=== PATIENT | female | born 1970 | race Hispanic/Latino ===

== ENCOUNTER 2017-09-02 12:38 | Inpatient (IN) | payer BC ==
[~2017-09-02] VITALS: Ht 157.5 cm; Wt 102.0 kg
[2017-09-02 13:05] VITALS: BP 140/80
[2017-09-02 13:38] LABS: BASOPHILS % (AUTO) 0.6 % (0.0-5.0); EOSINOPHILS % (AUTO) 1.5 % (0.0-8.0); HEMATOCRIT 37.5 % (36-48); LYMPHOCYTES % (AUTO) 29.1 % (21.0-51.0); MEAN CORPUSCULAR HEMOGLOBIN 24.2 pg (27.0-33.0); MEAN CORPUSCULAR HGB CONC 31.6 g/dL (32.0-36.0); MEAN CORPUSCULAR VOLUME 76.7 fL (79-99); MONOCYTES % (AUTO) 8.3 % (3.0-13.0); NEUTROPHILS % (AUTO) 60.5 % (40.0-77.0); PLATELET COUNT (AUTO) 459 K/uL (130-400); RED BLOOD CELL COUNT(AUTO) 4.89 MIL/uL (4.00-5.50); RED CELL DISTRIBUTION WIDTH 19.6 % (11.0-15.5); WHITE BLOOD COUNT (AUTO) 6.8 K/uL (4.8-10.8)
[2017-09-03] VITALS (21 sets, daily range): BP systolic 129–170; BP diastolic 66–92
[2017-09-03] MEDS ORDERED: LACTATED RINGERS 1000ML 1,000 ML IV SCH (06:00)
[2017-09-03] MEDS: CALDOLOR 800MG+NS 250ML 250 ML IV SCH ×2 (06:00→10:00)
[2017-09-03] MEDS ORDERED: CEFAZOLIN 3GM /D5W 100ML 100 ML IV SCH (06:00)
[2017-09-03] MEDS: CEFAZOLIN SODIUM 1 GM VIAL ONE ×2 (09:51→10:50)
[2017-09-03] MEDS ORDERED: FENTANYL CITRATE PF 50 MCG/1 ML 2ML VIAL ONE ×3 (10:43→13:02)
[2017-09-03] MEDS ORDERED: MIDAZOLAM HCL 1 MG/ML 2ML VIAL ONE (10:43)
[2017-09-03] MEDS ORDERED: SUCCINYLCHOLINE 200MG/10ML SYR ONE (10:43)
[2017-09-03] MEDS ORDERED: PROPOFOL 10 MG/ML 20ML VIAL IV ONE (10:43)
[2017-09-03] MEDS ORDERED: NEOSTIGMINE 5MG/5ML SYR IV ONE ×3 (10:43→13:00)
[2017-09-03] MEDS ORDERED: LIDOCAINE PF 2% 5ML ABBOJECT ONE (10:43)
[2017-09-03] MEDS ORDERED: ONDANSETRON HCL 4 MG/2 ML VIAL ONE (10:43)
[2017-09-03] MEDS ORDERED: DEXAMETHASONE SOD PHOSPHATE 10MG/ML 1ML VIAL ONE (10:43)
[2017-09-03] MEDS ORDERED: GLYCOPYRROLATE 0.2 MG/ML 5 ML VIAL ONE (10:43)
[2017-09-03] MEDS ORDERED: MORPHINE SULFATE 10 MG/ML 1ML SYG ONE (11:49)
[2017-09-03] MEDS ORDERED: LIDOCAINE HCL-MPF 1% 5ML AMP IJ ONE (13:00)
[2017-09-03] MEDS ORDERED: MEPERIDINE-PF 50 MG/ML SYG ONE ×2 (13:28→13:44)
[2017-09-03] MEDS ORDERED: ACETAMINOPHEN-CODEINE 300/30MG TAB PO PRN (14:15)
[2017-09-03] MEDS ORDERED: HYDROCODONE/ACETAMINOPHEN 5/325 MG TAB PO PRN ×2 (14:15)
[2017-09-03] MEDS ORDERED: SIMETHICONE 80 MG TAB.CHEW PO PRN (14:15)
[2017-09-03] MEDS: IBUPROFEN 800 MG TAB PO SCH ×2 (14:15→20:15)
[2017-09-03] MEDS ORDERED: BISACODYL 10 MG SUPP.RECT RC PRN (14:15)
[2017-09-03] MEDS ORDERED: DIPH,PERTUSS(ACELL),TET VAC/PF 0.5 ML VIAL IM SCH (14:15)
[2017-09-03] MEDS ORDERED: DOCUSATE SODIUM 100 MG CAP PO PRN (14:15)
[2017-09-03] MEDS ORDERED: IBUPROFEN 800 MG TAB PO PRN (14:15)
[2017-09-03] MEDS: MEPERIDINE-PF 75 MG/ML SYG IM PRN ×2 (15:09→19:14)
[2017-09-03] MEDS: PROMETHAZINE HCL 25 MG/ML 1ML AMPULE IM PRN ×2 (15:09→19:04)
[2017-09-03] MEDS: DEXTROSE 5 %-0.45 % NACL 1,000 ML IV PRN (18:42)
[2017-09-03] MEDS: CALDOLOR 800MG+NS 250ML 250 ML IVPB SCH (22:00)
[2017-09-04] MEDS: IBUPROFEN 800 MG TAB PO SCH ×4 (02:15→21:00)
[2017-09-04 03:28] VITALS: BP 134/77
[2017-09-04] MEDS: DEXTROSE 5 %-0.45 % NACL 1,000 ML IV PRN (04:38)
[2017-09-04] MEDS: CALDOLOR 800MG+NS 250ML 250 ML IVPB SCH (06:02)
[2017-09-04 06:44] LABS: HEMATOCRIT 33.1 % (36-48); MEAN CORPUSCULAR VOLUME 77.5 fL (79-99); PLATELET COUNT (AUTO) 397 K/uL (130-400); RED BLOOD CELL COUNT(AUTO) 4.27 MIL/uL (4.00-5.50); RED CELL DISTRIBUTION WIDTH 19.4 % (11.0-15.5); WHITE BLOOD COUNT (AUTO) 12.9 K/uL (4.8-10.8)
[2017-09-04 07:47] VITALS: BP 141/76
[2017-09-04] MEDS: DOCUSATE SODIUM 100 MG CAP PO PRN ×2 (08:52→20:59)
[2017-09-04] MEDS ORDERED: DOCU240C80 PO (11:00)
[2017-09-04] MEDS ORDERED: MO8B PO (11:01)
[2017-09-04] MEDS ORDERED: TYL3 PO (11:02)
[2017-09-04 11:38] VITALS: BP 142/82
[2017-09-04] MEDS: SIMETHICONE 80 MG TAB.CHEW PO PRN ×2 (13:48→20:59)
[2017-09-04 15:58] VITALS: BP 139/67
[2017-09-04 19:35] VITALS: BP 135/71
[2017-09-04 23:09] VITALS: BP 121/58
[2017-09-05 03:03] VITALS: BP 112/76
[2017-09-05] MEDS: IBUPROFEN 800 MG TAB PO SCH (06:18)
[2017-09-05 07:49] VITALS: BP 136/74
[2017-09-05] MEDS: SIMETHICONE 80 MG TAB.CHEW PO PRN (08:57)
[2017-09-05] MEDS: DOCUSATE SODIUM 100 MG CAP PO PRN (08:57)
== END 2017-09-05 10:55 | disposition home or self-care (01) | DRG 742 ==
LOC: DAHIP 09-03 09:16 → EDSTATUS 09-03 13:00 → WSH 09-03 14:45
PROVIDERS: ADMIT Obstetrics & Gynecology; ATTEND Obstetrics & Gynecology
PROC: 0UN10ZZ Release Left Ovary, Open Approach (ICD-10-PCS; 2017-09-03)
PROC: 0UN90ZZ Release Uterus, Open Approach (ICD-10-PCS; 2017-09-03)
PROC: 0UT90ZZ Resection of Uterus, Open Approach (ICD-10-PCS; principal; 2017-09-03 10:50)
PROC: 0UT50ZZ Resection of Right Fallopian Tube, Open Approach (ICD-10-PCS; 2017-09-03 10:50)
PROC: 0UT00ZZ Resection of Right Ovary, Open Approach (ICD-10-PCS; 2017-09-03 10:50)
DX: N92.1 Excessive and frequent menstruation with irregular cycle (principal); Z68.41 Body mass index [BMI] 40.0-44.9, adult; D25.9 Leiomyoma of uterus, unspecified; F17.200 Nicotine dependence, unspecified, uncomplicated; E66.9 Obesity, unspecified; N83.10 Corpus luteum cyst of ovary, unspecified side; N73.6 Female pelvic peritoneal adhesions (postinfective); D64.9 Anemia, unspecified
CPT/HCPCS: 36415; 84703; 85025; 85027; 86850; 86900; 86901; 88307; 90715; A4218; A4344; J0330; J0690; J1100; J1741; J2001; J2175; J2250; J2270; J2405; J2550; J2704; J2710; J3010; J3490; J7030; J7120

== ENCOUNTER 2017-09-07 21:56 | Observation (INO) | payer BC ==
[~2017-09-07] VITALS: Ht 154.9 cm; Wt 105.2 kg
[~2017-09-07 21:56] MED LIST: DOCU240C80 PO; MO8B PO; TYL3 PO
[2017-09-07] MEDS ORDERED: MEROPENEM 1 GM VIAL ONE (22:36)
[2017-09-07] MEDS ORDERED: SODIUM CHLORIDE 0.9% 1000ML 1,000 ML IV ONE (22:36)
[2017-09-07 22:40] LABS: APPEARANCE,URINE Cloudy (CLEAR); BILIRUBIN,URINE Negative (NEGATIVE); COLOR,URINE Yellow (YELLOW); GLUCOSE, URINE (UA) Negative (NEGATIVE); KETONES,URINE Negative (NEGATIVE); LEUKOCYTE ESTERASE ,URINE Negative (NEGATIVE); NITRATE,URINE Negative (NEGATIVE); OCCULT BLOOD,URINE Trace (NEGATIVE); PROTEIN,URINE Negative (NEGATIVE)
[2017-09-07 22:51] LABS: MEAN CORPUSCULAR HEMOGLOBIN 23.9 pg (27.0-33.0)
[2017-09-07 23:01] LABS: CARBON DIOXIDE 29 mmol/L (21-32); CHLORIDE 102 mmol/L (101-111); CREATININE 0.6 mg/dL (0.5-1.5); GLOMERULAR FILTR. RATE CALC 115 mL/min (>60); GLUCOSE,RANDOM 123 mg/dL (70-105); POTASSIUM 4.1 mmol/L (3.5-5.1); SODIUM SERUM 139 mmol/L (136-145); UREA NITROGEN, BLOOD 9 mg/dL (7-18)
[2017-09-07 23:05] LABS: INR 0.94 (0.85-1.15); PROTHROMBIN TIME 9.9 SEC (9.6-11.6)
[2017-09-07 23:10] LABS: BASOPHILS % (AUTO) 0.5 % (0.0-5.0); EOSINOPHILS % (AUTO) 1.4 % (0.0-8.0); HEMATOCRIT 30.6 % (36-48); LYMPHOCYTES % (AUTO) 15.2 % (21.0-51.0); MEAN CORPUSCULAR HGB CONC 31.7 g/dL (32.0-36.0); MEAN CORPUSCULAR VOLUME 75.5 fL (79-99); MONOCYTES % (AUTO) 9.6 % (3.0-13.0); NEUTROPHILS % (AUTO) 73.3 % (40.0-77.0); NUCLEATED RED BLOOD CELLS 0.1 % (0.0-0.19); PLATELET COUNT (AUTO) 380 K/uL (130-400); RED BLOOD CELL COUNT(AUTO) 4.06 MIL/uL (4.00-5.50); RED CELL DISTRIBUTION WIDTH 19.5 % (11.0-15.5)
[2017-09-07 23:11] LABS: BACTERIA,URINE None Seen /HPF (None Seen); RBC,URINE 0-1 /HPF (0-1); SQUAMOUS EPITHELIAL CELL,UR Moderate /LPF (0-2); WBC,URINE None Seen /HPF (0-1)
[2017-09-07] MEDS ORDERED: IOPAMIDOL-370 75 ML VIAL IV ONE (23:11)
[2017-09-07 23:15] LABS: ALANINE AMINOTRANSFERASE 25 U/L (12-78); ALBUMIN 2.7 g/dL (3.5-5.0); ASPARTATE AMINOTRANSFERASE 25 U/L (10-37); BILIRUBIN,TOTAL 0.2 mg/dL (0.2-1.0); CREATINE KINASE MB < 0.5 ng/mL (0.5-3.6); CREATINE KINASE, TOTAL 236 U/L (21-232); MYOGLOBIN 34 ng/mL (10-92); TOTAL PROTEIN, SERUM 6.4 g/dL (6.0-8.3); TROPONIN I < 0.04 ng/mL (0.00-0.06)
[2017-09-08] VITALS (11 sets, daily range): BP systolic 101–144; BP diastolic 56–81
[2017-09-08] MEDS ORDERED: VANCOMYCIN 1GM+NS 250ML 250 ML IV ONE (01:56)
[2017-09-08] MEDS ORDERED: GENTAMICIN SULFATE 80 MG/2 ML VIAL ONE (04:00)
[2017-09-08] MEDS ORDERED: CLINDAMYCIN 900 MG/D5% WATER 50 ML IV ONE (04:01)
[2017-09-08] MEDS ORDERED: PROMETHAZINE HCL 25 MG/ML 1ML AMPULE IM PRN (08:15)
[2017-09-08] MEDS ORDERED: MEPERIDINE-PF 50 MG/ML SYG IM PRN (08:15)
[2017-09-08] MEDS: LACTATED RINGERS 1000ML 1,000 ML IV SCH ×2 (09:55→19:20)
[2017-09-08] MEDS: CLINDAMYCIN 900 MG/D5% WATER 50 ML IV SCH ×2 (12:18→19:08)
[2017-09-08] MEDS: GENTAMICIN 80 MG/NS 100 ML PB 100 ML IV SCH ×2 (13:04→21:07)
[2017-09-08] MEDS ORDERED: IBUPROFEN 800 MG TAB PO PRN (14:45)
[2017-09-08] MEDS ORDERED: ACETAMINOPHEN-CODEINE 300/30MG TAB PO PRN ×2 (14:45)
[2017-09-08] MEDS ORDERED: FENTANYL CITRATE PF 50 MCG/1 ML 2ML VIAL ONE (15:11)
[2017-09-08] MEDS ORDERED: DOCUSATE SODIUM 100 MG CAP PO PRN (19:30)
[2017-09-09] MEDS: CLINDAMYCIN 900 MG/D5% WATER 50 ML IV SCH ×2 (00:21→06:15)
[2017-09-09 03:01] VITALS: BP 132/62
[2017-09-09] MEDS: LACTATED RINGERS 1000ML 1,000 ML IV SCH (04:41)
[2017-09-09] MEDS: GENTAMICIN 80 MG/NS 100 ML PB 100 ML IV SCH (05:01)
[2017-09-09 08:24] VITALS: BP 138/96
[2017-09-09 12:24] VITALS: BP 123/78
== END 2017-09-09 13:00 | disposition home or self-care (01) ==
LOC: EDH 21:56 → EDHIP 09-08 02:22 → WSH 09-08 08:13
PROVIDERS: ADMIT Obstetrics & Gynecology; ATTEND Obstetrics & Gynecology
DX: T81.4XXA Infection following a procedure, initial encounter (principal); K61.1 Rectal abscess
CPT/HCPCS: 36415; 71045; 74177; 75989; 76942; 80053; 81001; 82550; 82553; 83605; 83874; 84484; 85025; 85610; 85730; 87040; 87070; 87076; 87088; 87186; 87804 ×2; 93005; 96361 ×2; 96365; 96366 ×2; 96367; 96376; 99285; C1729; C1769; G0378 ×35; J1580 ×4; J2185; J3010; J3370; J3490 ×5; J7030; J7120; Q9967

== ENCOUNTER 2019-09-24 13:41 | Observation (INO) | payer BC ==
[~2019-09-24] VITALS: Ht 154.9 cm; Wt 104.1 kg
[~2019-09-24 13:41] MED LIST changes: +IBUP-1493 PO; -MO8B PO
[2019-09-24] MEDS ORDERED: ASPIRIN 325 MG TABLET ONE (14:26)
[2019-09-24 14:34] LABS: BASOPHILS % (AUTO) 0.5 % (0.0-5.0); EOSINOPHILS % (AUTO) 0.9 % (0.0-8.0); HEMATOCRIT 42.8 % (36-48); LYMPHOCYTES % (AUTO) 24.3 % (21.0-51.0); MEAN CORPUSCULAR HEMOGLOBIN 30.7 pg (27.0-33.0); MEAN CORPUSCULAR HGB CONC 32.7 g/dL (32.0-36.0); MEAN CORPUSCULAR VOLUME 93.9 fL (79-99); NEUTROPHILS % (AUTO) 67.1 % (40.0-77.0); PLATELET COUNT (AUTO) 311 K/uL (130-400); RED BLOOD CELL COUNT(AUTO) 4.56 MIL/uL (4.00-5.50); RED CELL DISTRIBUTION WIDTH 13.2 % (11.0-15.5); WHITE BLOOD COUNT (AUTO) 8.6 K/uL (4.8-10.8)
[2019-09-24 14:45] LABS: CREATININE 0.7 mg/dL (0.5-1.5); POTASSIUM 3.7 mmol/L (3.5-5.1)
[2019-09-24 14:48] LABS: INR 0.9 (0.85-1.15); PARTIAL THROMBOPLASTIN TIME 29.8 SEC (26.3-35.5); PROTHROMBIN TIME 9.8 SEC (9.6-11.6)
[2019-09-24 14:49] LABS: ALBUMIN 3.5 g/dL (3.5-5.0); BILIRUBIN,TOTAL 0.4 mg/dL (0.2-1.0); TOTAL PROTEIN, SERUM 7.7 g/dL (6.0-8.3)
[2019-09-24] MEDS ORDERED: HYDRALAZINE HCL 20 MG/ML VIAL IV PRN (15:45)
[2019-09-24] MEDS ORDERED: ACETAMINOPHEN 325 MG TAB PO PRN ×2 (15:45)
[2019-09-24] MEDS ORDERED: ONDANSETRON HCL 4 MG/2 ML VIAL IV PRN (15:45)
[2019-09-24] MEDS ORDERED: MORPHINE SULFATE 2 MG/ML 1ML SYG IV PRN (15:45)
[2019-09-24 16:36] LABS: HEMOGLOBIN A1C 5.9 % (4.0-6.0)
[2019-09-24] MEDS ORDERED: ATORVASTATIN CALCIUM 20 MG TABLET ONE (20:37)
[2019-09-24] MEDS ORDERED: METOPROLOL TARTRATE 25 MG TAB ONE (20:38)
[2019-09-24] MEDS ORDERED: FAMOTIDINE/PF 20 MG/2 ML VIAL IV ONE (20:38)
[2019-09-24] MEDS: FAMOTIDINE/PF 20 MG/2 ML VIAL IV SCH (21:00)
[2019-09-24] MEDS: ATORVASTATIN CALCIUM 40 MG TABLET PO SCH (21:00)
[2019-09-24] MEDS: METOPROLOL TARTRATE 25 MG TAB PO SCH (21:00)
[2019-09-25 04:58] LABS: BASOPHILS % (AUTO) 0.5 % (0.0-5.0); EOSINOPHILS % (AUTO) 2.4 % (0.0-8.0); HEMATOCRIT 43.4 % (36-48); LYMPHOCYTES % (AUTO) 31.3 % (21.0-51.0); MEAN CORPUSCULAR HEMOGLOBIN 29.7 pg (27.0-33.0); MEAN CORPUSCULAR HGB CONC 31.3 g/dL (32.0-36.0); MEAN CORPUSCULAR VOLUME 94.8 fL (79-99); MONOCYTES % (AUTO) 8.6 % (3.0-13.0); NEUTROPHILS % (AUTO) 56.8 % (40.0-77.0); PLATELET COUNT (AUTO) 272 K/uL (130-400); RED BLOOD CELL COUNT(AUTO) 4.58 MIL/uL (4.00-5.50); RED CELL DISTRIBUTION WIDTH 13.2 % (11.0-15.5); WHITE BLOOD COUNT (AUTO) 8.1 K/uL (4.8-10.8)
[2019-09-25 05:24] LABS: BILIRUBIN,TOTAL 0.3 mg/dL (0.2-1.0); CREATININE 0.8 mg/dL (0.5-1.5); POTASSIUM 4.1 mmol/L (3.5-5.1)
[2019-09-25 05:35] LABS: ALBUMIN 3.2 g/dL (3.5-5.0)
[2019-09-25] MEDS ORDERED: ASPIRIN 81MG TAB.CHEW ONE (07:59)
[2019-09-25] MEDS ORDERED: METOPROLOL TARTRATE 25 MG TAB ONE (07:59)
[2019-09-25] MEDS ORDERED: FAMOTIDINE/PF 20 MG/2 ML VIAL IV ONE (07:59)
[2019-09-25] MEDS: FAMOTIDINE/PF 20 MG/2 ML VIAL IV SCH ×2 (09:00→20:39)
[2019-09-25] MEDS: METOPROLOL TARTRATE 25 MG TAB PO SCH ×2 (09:00→20:38)
[2019-09-25] MEDS ORDERED: ASPIRIN 325 MG TABLET PO SCH (09:00)
[2019-09-25 15:53] VITALS: BP 154/99
[2019-09-25 20:08] VITALS: BP 122/70
--- NOTE | 2019-09-25 20:16 | NUR ---
2D echo Report Notified Dr. Reid of normal 2D echo report. States will follow up for possible discharge.
[2019-09-25] MEDS: ATORVASTATIN CALCIUM 40 MG TABLET PO SCH (20:39)
--- NOTE | 2019-09-25 21:22 | NUR ---
Follow-up Per PMD, patient had new symptoms. Plan to dc in AM if no further symptoms.
[2019-09-25 23:51] VITALS: BP 124/76
[2019-09-26 03:53] VITALS: BP 116/79
--- NOTE | 2019-09-26 07:35 | NUR ---
ASSESSMENT ENCOUNTERED PT IN SEMI FLOYD'S POSITION, A&OX3, CALM COOPERATIVE AND DOES NOT APPEAR TO BE IN ANY DISTRESS NOR ANY NEURO DEFICITS PRESENT. PT DENIES PAIN, SOB, NAUSEA. PT IS AMBULATORY, GAIT STEADY AND STRONG WITH STAND BY ASSIST. CALL LIGHT WITHIN REACH.
[2019-09-26 07:39] VITALS: BP 123/82
[2019-09-26] MEDS ORDERED: ATOR20TA PO (08:47)
--- NOTE | 2019-09-26 09:20 | NUR ---
DISCHARGE INSTRUCTIONS GIVEN, PIV REMOVED AND INTACT, DISCHARGED HOME TO FAMILY VEHICLE VIA WHEELCHAIR
== END 2019-09-26 10:10 | disposition home or self-care (01) ==
LOC: EDH 13:41 → EDHIP 15:43 → 2DH 09-25 15:49
PROVIDERS: ADMIT Internal Medicine; ATTEND Internal Medicine
DX: R07.89 Other chest pain (principal); E78.5 Hyperlipidemia, unspecified; I10 Essential (primary) hypertension; Z72.0 Tobacco use; Z90.710 Acquired absence of both cervix and uterus; Z90.49 Acquired absence of other specified parts of digestive tract
CPT/HCPCS: 36415 ×2; 71045; 80053 ×2; 80061; 82550; 83036; 84484 ×4; 85025 ×2; 85610; 85730; 93005 ×4; 93306; 93356; 96374; 99285; G0378 ×10; J3490 ×3

== ENCOUNTER 2024-08-08 10:37 | Emergency (ER) | payer SELFPAY ==
[~2024-08-08] VITALS: Ht 170.2 cm; Wt 97.5 kg
[~2024-08-08 10:37] MED LIST changes: +ATOR20TA PO; -DOCU240C80 PO; -IBUP-1493 PO; -TYL3 PO
--- NOTE | 2024-08-08 11:25 | ERN ---
ED Note History of Present Illness Stated Complaint: FLU LIKE SYMPTOMS SINCE YESTERDAY Chief Complaint: Flu Symptoms Time Seen by MD: 10:47 Time Seen by Midlevel: 10:47 Dictation: 54-year-old female presents to the ED for evaluation of flu-like symptoms onset one day ago. Patient reports cough, nasal congestion, but deny any other associated symptoms at this time. Patient admits to smoking but states she has been unable to smoke for the last couple of days secondary to her congestion and cough. Th Allergies: Coded Allergies: No Known Drug Allergies (Unverified Allergy, Unknown, 09/02/17) Home Meds Active Scripts Atorvastatin Calcium (Lipitor) 20 Mg Tablet, 20 MG PO DAILY for 7 Days, #7 TAB !!Remember to check dose!! Prov:DURAN HSU OSTEOPATHIC RESIDENT 09/26/19 Review of System Dictation Constitutional: Negative for fever,chills, and weight loss Eyes: Negative for injury, pain,redness, and discharge ENT: Negative for injury,pain or swelling Cardiovascular: Negative for chest pain, palpitations, and edema Respiratory: Negative for shortness of breath, cough, and wheezing, Abdomen/GI: Negative for abdominal pain, nausea, vomiting, diarrhea, and constipation Back: Negative for injury and pain : Negative for injury, bleeding and discharge MS/Extremity: Negative for injury and deformity Skin: Negative for rash, and discoloration Neuro: Negative for headache, weakness, numbness, tingling, and seizure Psych: Negative for suicide ideation, homicidal ideation, and hallucinations Initial Vital Sign VS Vital Signs Date Time Temp Pulse Resp B/P (MAP) Pulse Ox O2 Delivery O2 Flow Rate FiO2 08/08/24 12:01 80 20 Physical Exam Dictation General: awake, alert, NAD Head/Face: Normocephalic, atraumatic Eyes: PERRL, EOMI, vision at baseline ENT: oral cavity clear, TMs clear, no signs of infection Neck: Trachea midline, supple, no nuchal rigidity Cardiovascular: RRR, normal S1/S2, No MRGs, no JVD Respiratory: CTAB, no respiratory distress, No rales or wheezes Abdomen: Soft, non-tender, non-distended, normal bowel sounds, no guarding or rebound. Skin: Warm, dry, normal turgor, no rash MS/Extremity: Pulses equal, no cyanosis, neurovascular intact, FROM Neuro: COAx4, GCS 15, strength 5/5, CN 2-12 intact, normal cerebellar exam, normal gait, Psych: Normal behavior, mood, and affect normal ED Course ED Course Orders Procedure Category Date Status Time Covid Rna Naat LAB 08/08/24 Logged 11:01 Influenza Type A & B, LAB 08/08/24 Logged Rapid 11:01 Chest 1vw RAD 08/08/24 Taken 11:01 Ipratropium/Albuterol PHA 08/08/24 Complete Neb (Duoneb) 11:30 Current Medications Medications (Trade) Dose Ordered Sig/Bertha Route PRN Reason Start Time Stop Time Status Last Admin Dose Admin Albuterol (DUOneb) 1 UDVIAL ONCE ONCE IH 08/08/24 11:30 08/08/24 11:31 DC 08/08/24 12:13 Vital Signs Date Time Temp Pulse Resp B/P (MAP) Pulse Ox O2 Delivery O2 Flow Rate FiO2 08/08/24 12:01 80 20 12:17 p.m. patient finished her DuoNeb treatment. At this time patient would not like to wait for her respiratory swabs. We will discharge home with supportive management Medical Decision Making MDM MDM: Differential diagnosis: Viral syndrome, influenza, acute bronchitis Rationale: Tests considered and ordered secondary to shared decision making include: Previous outside records reviewed: Old ER visits. Risk of complication and/or morbidity or mortality of patient management: None Medications-Per medication reconciliation Need for hospitalization: Patient does not meet criteria for hospitalization. Need for emergency major/minor surgery: No There are no social concerns with this patient. Prescription drug management Prescriptions will include symptomatic care Patient's prior external medical records from other ER visits were reviewed by me as indicated. Prior testing and results from previous visits were reviewed. Prior tests were taken into account with medical decision making and resource utilization, independent historian/historians were used to obtain complete medical history. I independently interpreted the test that were performed, results were reviewed by me and considered findings on radiology if ordered. Medical management and examination interpretation discussions were had by me with other qualified healthcare professionals as indicated for the patient's care. DX & DISP Disposition: Discharge Departure Impression: Primary Impression: Acute bronchitis Condition: Stable Scripts Methylprednisolone (Medrol) 4 Mg Tab.ds.pk 1 TAB PO AD for 6 Days, #21 TAB 0 Refills 6 on day 1 then reduce by one tablet daily until gone Prov: DANELLE ARELLANO 08/08/24 Azithromycin (Azithromycin) 250 Mg Tablet 1 TAB PO AD for 5 Days, #6 TAB 0 Refills 2 the first day followed by 1 for days 2-5 Prov: DANELLE ARELLANO 08/08/24 Additional Instructions: Your chest x-ray shows some pulmonary congestion. I have given you a prescription for antibiotics and steroids which should help with your symptoms outpatient. Follow up with your primary care doctor. Return to the ER for any new or worsening symptoms Referrals: EVELYN KHAN MD (PCP) I have reviewed the case, and I agree with, Diagnosis and Plan I performed the substantive portion of the visit. I have reviewed and personally made and approve the management plan that is documented in the note by myself or the EDMUND. I acknowledge for responsibility for the patient's management plan. I personally scribed for DANELLE ARELLANO ([email or web address]) on 08/08/24 at 11:25. Electronically submitted by Clint Jj ([email or web address]). DANELLE ARELLANO Aug 08, 2024 11:25
[2024-08-08 12:01] VITALS: PULSE 80; RESP 20
[2024-08-08] MEDS: IpraTROPium/alBUTERol SULFATE 3 ML SOLUTION IH ONE (12:13)
[2024-08-08] MEDS ORDERED: METH4TAB3 PO (12:16)
[2024-08-08] MEDS ORDERED: AZIT250T9 PO (12:16)
[2024-08-08 12:36] VITALS: BP 134/75; PULSE 81; RESP 20; TEMP 99.4; O2SAT 96
--- NOTE | 2024-08-08 12:56 | HMCIMG ---
CHEST 1VW REASON: COUGH/FEVER COMPARISON: 09/24/2019 FINDINGS: Single view of the chest was obtained. Lungs are clear. Heart size is normal. There is no pulmonary vascular congestion. Mediastinum and bony thorax appear unremarkable. IMPRESSION: 1. Normal single view chest x-ray.
[2024-08-08 14:11] LABS: COVID19 (SARS ANTIGEN RAPID) PRESUMPTIVE NEGATIVE (NEGATIVE); INFLUENZA TYPE A Negative For Type A (NEGATIVE); INFLUENZA TYPE B Negative For Type B (NEGATIVE)
== END 2024-08-08 12:50 | disposition home or self-care (01) ==
LOC: EDH 10:37
DX: J20.9 Acute bronchitis, unspecified (principal); Z79.899 Other long term (current) drug therapy; Z20.822 Contact with and (suspected) exposure to COVID-19
CPT/HCPCS: 71045; 87426; 87804; 94640; 99284